=== PATIENT | female | born 1955 | race Caucasian/White ===

== ENCOUNTER 2016-06-18 22:20 | Emergency (ER) | payer BC ==
[~2016-06-18] VITALS: Ht 167.6 cm; Wt 240.0 kg
[~2016-06-18 22:20] MED LIST: ALEN70TA46 PO; ASPI-664 PO; ATOR20TA38 PO; GABA300C16 PO; IBUP800T25 PO; LISI10TA2 PO; LORA1TAB PO; METF-385 PO; NAPR500T8 PO; OSLT75C PO; PRED20TA PO; SITA100T8 PO
[2016-06-18 22:32] VITALS: Ht 167.6 cm; Wt 240.0 kg
[2016-06-18] MEDS ORDERED: ONDANSETRON (ODT) 4 MG TAB ODT STA (23:12)
--- NOTE | 2016-06-18 23:20 | ERD ---
ER Documentation Chief Complaint Date/Time DATE: 06/18/16 TIME: 23:16 Chief Complaint right hand laceration with broken plate x 1 hour ago HPI 60-year-old female with a history of bilateral knee arthritis, type 2 diabetes, hypertension presents to the emergency department following a fall and laceration. Patient states she was walking in her kitchen carrying a plate when she tripped and fell landing on the broken plate causing a laceration to her right hand. Patient states the injury occurred 1 hour ago and since that time she is experienced ongoing bleeding. She currently rates her pain as a 6 out of 10 constant throbbing isolated to the right hand. She denies any other obvious injury but does note that she has some pain throughout her right upper extremity. Patient notes however that she is able to fully move her right upper extremity at the shoulder and elbow joint. Patient denies any trauma to her head and did not lose consciousness. Patient denies any shortness of breath , chest pain, dizziness, headache, abdominal pain, fever, or recent illness. ROS All systems reviewed and are negative except as per history of present illness. Medications Home Meds Active Scripts Mupirocin* (Bactroban*) 2% -22 Gram Oint...g., 1 APPLIC TOP TID, #1 TUB SITE OF APPLICATION: Prov:ANDREW BUTLER PA-C 06/19/16 Cephalexin* (Keflex*) 500 Mg Capsule, 500 MG PO QID for 5 Days, CAP Prov:ANDREW BUTLER PA-C 06/19/16 Hydrocodone/Acetaminophen ([place] 10-325 Tablet) 1 Each Tablet, 1 TAB PO Q6H Y for PAIN, #20 TAB Prov:ANDREW BUTLER PA-C 06/19/16 Oseltamivir Phosphate* (Tamiflu*) 75 Mg Capsule, 75 MG PO BID for 5 Days, CAP Prov:CAM HUSAIN 03/11/16 Prednisone* (Prednisone*) 20 Mg Tab, 40 MG PO DAILY for 4 Days, TAB Prov:CAM HUSAIN 03/11/16 Ibuprofen* (Motrin*) 800 Mg Tab, 800 MG PO Q6, #30 TAB Prov:CAM HUSAIN 03/11/16 Reported Medications Lorazepam* (Lorazepam*) 1 Mg Tablet, 1 MG PO BID Y for ANXIETY, #30 TAB 03/10/16 Sitagliptin* (Januvia*) 100 Mg Tablet, 100 MG PO DAILY, #30 TAB 03/10/16 Naproxen* (Naproxen EC*) 500 Mg Tablet.dr, 500 MG PO BID Y for PAIN, TAB 03/10/16 Metformin Hcl* (Metformin Hcl*) 850 Mg Tablet, 850 MG PO WITH BREAKFAST, #30 TAB 03/10/16 Lisinopril* (Lisinopril*) 10 Mg Tablet, 10 MG PO DAILY, #30 TAB 03/10/16 Gabapentin* (Gabapentin*) 300 Mg Capsule, 300 MG PO TID, #90 CAP 03/10/16 Atorvastatin Calcium* (Atorvastatin Calcium*) 20 Mg Tablet, 20 MG PO QHS, #30 TAB 03/10/16 Aspirin* (Aspirin* EC) 81 Mg Tablet.dr, 81 MG PO DAILY, TAB 03/10/16 Alendronate Sodium* (Binosto*) 70 Mg Tablet.eff, 70 MG PO Q7D, TAB PT TAKES MEDICATION EVERY Wednesday03/10/16 Allergies Allergies: Coded Allergies: No Known Allergy (Unverified , 03/10/16) PMhx/Soc History of Surgery: No Anesthesia Reaction: No Hx Neurological Disorder: No Hx Respiratory Disorders: No Hx Cardiac Disorders: Yes (HTN) Hx Psychiatric Problems: No Hx Miscellaneous Medical Probl: Yes (DM, ARTHRITIS) Hx Alcohol Use: No Hx Substance Use: No Hx Tobacco Use: No Smoking Status: Never smoker Physical Exam Vitals Vital Signs Date Time Temp Pulse Resp B/P Pulse Ox O2 Delivery O2 Flow Rate FiO2 06/18/16 22:32 98.2 87 20 185/92 98 Physical Exam Const: Well-developed, well-nourished, well-hydrated, nontoxic appearing, in mild to Head: Atraumatic Eyes: Normal Conjunctiva ENT: Normal External Ears, Nose and Mouth. Neck: Full range of motion..~ No meningismus. Resp: Clear to auscultation bilaterally Cardio: Regular rate and rhythm, no murmurs Abd: Soft, non tender, non distended. Normal bowel sounds Skin: No petechiae or rashes Back: No midline or flank tenderness Ext: No tenderness to palpation along the shoulder or elbow joint of the right upper extremity. No tenderness to palpation along the humerus shaft or forearm. Full active and passive range of motion at left upper shoulder, elbow , wrist joints. No cyanosis, or edema Neur: Awake and alert Psych: Normal Mood and Affect Results 24 hrs Current Medications Medications (Trade) Dose Ordered Sig/Tory Route PRN Reason Start Time Stop Time Status Last Admin Dose Admin Acetaminophen/ Hydrocodone Bitart ([place] (10/325)) 1 tab ONCE ONCE PO 06/18/16 23:30 06/18/16 23:31 DC 06/18/16 23:18 Ondansetron HCl (Zofran Odt) 4 mg ONCE STAT ODT 06/18/16 23:12 06/18/16 23:15 DC 06/18/16 23:18 Diphtheria/ Tetanus/Acell Pertussis (Adacel) 0.5 ml ONCE ONCE IM* 06/19/16 00:30 06/19/16 00:31 Procedures/MDM PROCEDURE: XR Hand. CLINICAL INDICATION: Right hand pain. TECHNIQUE: AP oblique and lateral views of the right hand were obtained. COMPARISON: No prior studies are available for comparison. FINDINGS: Reference marker is directed towards the medial aspect of the right hand, without evident underlying radiographic abnormality. Demineralization limits evaluation of fine osseous detail. No acute fracture or dislocation is seen. There are no significant degenerative changes. There is no significant soft tissue swelling. No evident retained radiopaque foreign material in the right hand. IMPRESSION: Demineralization, without acute fracture. RPTAT: [facility] Physician Kj Date Time Electronically viewed and signed by Physician Kj on 06/18/2016 23:34 RS/ CC: ANDREW BUTLER-Melissa X-ray Hand 3V interpreted by me: Scaphoid: Normal Bones: No fracture Joints: No dislocation Foreign body: None Laceration Repair by me: Anesthesia: 1% lidocaine locally Location: [XOXOXO] Tendon/Joint/Nerves: No injury Foreign body: None detected after copious irrigation and exploration Technique: Simple Interrupted Sutures Complexity: No subcutaneous sutures/mucosal repair/ edge excision Post Closure Length: [XOXOXO] cm Patient's bleeding was easily controlled in the department and there is no indication of anemia. No evidence of compartment syndrome, neurologic injury, vascular injury, open joint, tendon laceration, or foreign body. Patient is appropriate for outpatient follow up. 48 hour wound check. Scar minimization instructions given. Patient given Jackhorn and Zofran while in the emergency department. Patient given Tdap booster while in the emergency department today 60-year-old female with a history of diabetes, hypertension, and arthritis who presents to the emergency department following a fall and laceration to her left upper extremity. Based on patient's history of present illness and physical examination the decision was made to discharge. The patient was re-evaluated after ED treatment and stabilizing measures, and symptoms have improved. There is no evidence of life threatening injuries or illnesses at this time. On re-examination, patient resting in no distress, stable vital signs, reports feeling better and safe for discharge with outpatient follow up with PMD in 1-2 days. Patient given return precautions. ANDREW BUTLER PA-C Jun 18, 2016 23:20
[2016-06-18] MEDS ORDERED: HYDROCODONE/APAP (10/325) TAB PO ONE (23:30)
--- NOTE | 2016-06-18 23:34 | RADRPT ---
PROCEDURE: XR Hand. CLINICAL INDICATION: Right hand pain. TECHNIQUE: AP oblique and lateral views of the right hand were obtained. COMPARISON: No prior studies are available for comparison. FINDINGS: Reference marker is directed towards the medial aspect of the right hand, without evident underlying radiographic abnormality. Demineralization limits evaluation of fine osseous detail. No acute fracture or dislocation is seen. There are no significant degenerative changes. There is no significant soft tissue swelling. No evident retained radiopaque foreign material in the right hand. IMPRESSION: Demineralization, without acute fracture. RPTAT: [facility] Physician Kj Date Time Electronically viewed and signed by Physician Kj on 06/18/2016 23:34 RS/
[2016-06-19] MEDS ORDERED: HYDR-902 PO (00:15)
[2016-06-19] MEDS ORDERED: MUPI22OI2 TOP (00:17)
[2016-06-19] MEDS ORDERED: CEPH-443 PO (00:17)
[2016-06-19] MEDS ORDERED: DIPHTH/TET/ACEL PERTUSS (ADULT) 0.5 ML VIAL IM* ONE (00:30)
[2016-06-19 01:01] VITALS: BP 139/69; PULSE 80; RESP 22; TEMP 98.1
== END 2016-06-19 01:10 | disposition home or self-care (01) ==
LOC: FTE 22:20
DX: S61.411A Laceration without foreign body of right hand, initial encounter (principal); I10 Essential (primary) hypertension; E11.9 Type 2 diabetes mellitus without complications; W26.8XXA Contact with other sharp object(s), not elsewhere classified, initial encounter; Y92.000 Kitchen of unspecified non-institutional (private) residence as the place of occurrence of the external cause; Z23 Encounter for immunization; Z79.84 Long term (current) use of oral hypoglycemic drugs; Z79.82 Long term (current) use of aspirin
CPT/HCPCS: 12001; 73130; 90471; 90715; Z7502; Z7610

== ENCOUNTER 2016-06-21 19:14 | Emergency (ER) | payer BC ==
[~2016-06-21] VITALS: Ht 167.6 cm; Wt 111.0 kg
[~2016-06-21 19:14] MED LIST changes: +CEPH-443 PO; +HYDR-902 PO; -METF-385 PO; +METF850T PO; +MUPI22OI2 TOP
[2016-06-21 19:20] VITALS: Ht 167.6 cm; Wt 111.0 kg
--- NOTE | 2016-06-21 21:16 | ERD ---
ER Documentation Chief Complaint Date/Time DATE: 06/21/16 TIME: 21:14 Chief Complaint has splint on right pinky finger, coming back for wound check HPI 60-year-old female presents here in emergency department for wound check of the right fifth finger laceration wound, it was sutured 2 days ago. Patient's pain is controlled at this time. Patient discussed pain as throbbing pain, 4/10 scale , worse upon touching the area. Patient denies any discharge coming from the area. Patient denies any gaping of the wound. Patient does not have fever or chills. Patient is currently taking antibiotics prescribed to her. ROS All systems reviewed and are negative except as per history of present illness. Medications Home Meds Active Scripts Mupirocin* (Bactroban*) 2% -22 Gram Oint...g., 1 APPLIC TOP TID, #1 TUB SITE OF APPLICATION: Prov:ANDREW BUTLER PA-C 06/19/16 Cephalexin* (Keflex*) 500 Mg Capsule, 500 MG PO QID for 5 Days, CAP Prov:ANDREW BUTLER PA-C 06/19/16 Hydrocodone/Acetaminophen ([place] 10-325 Tablet) 1 Each Tablet, 1 TAB PO Q6H Y for PAIN, #20 TAB Prov:ANDREW BUTLER PA-C 06/19/16 Oseltamivir Phosphate* (Tamiflu*) 75 Mg Capsule, 75 MG PO BID for 5 Days, CAP Prov:CAM HUSAIN 03/11/16 Prednisone* (Prednisone*) 20 Mg Tab, 40 MG PO DAILY for 4 Days, TAB Prov:CAM HUSAIN 03/11/16 Ibuprofen* (Motrin*) 800 Mg Tab, 800 MG PO Q6, #30 TAB Prov:CAM HUSAIN 03/11/16 Reported Medications Lorazepam* (Lorazepam*) 1 Mg Tablet, 1 MG PO BID Y for ANXIETY, #30 TAB 03/10/16 Sitagliptin* (Januvia*) 100 Mg Tablet, 100 MG PO DAILY, #30 TAB 03/10/16 Naproxen* (Naproxen EC*) 500 Mg Tablet.dr, 500 MG PO BID Y for PAIN, TAB 03/10/16 Metformin Hcl* (Metformin Hcl*) 850 Mg Tablet, 850 MG PO WITH BREAKFAST, #30 TAB 03/10/16 Lisinopril* (Lisinopril*) 10 Mg Tablet, 10 MG PO DAILY, #30 TAB 03/10/16 Gabapentin* (Gabapentin*) 300 Mg Capsule, 300 MG PO TID, #90 CAP 03/10/16 Atorvastatin Calcium* (Atorvastatin Calcium*) 20 Mg Tablet, 20 MG PO QHS, #30 TAB 03/10/16 Aspirin* (Aspirin* EC) 81 Mg Tablet.dr, 81 MG PO DAILY, TAB 03/10/16 Alendronate Sodium* (Binosto*) 70 Mg Tablet.eff, 70 MG PO Q7D, TAB PT TAKES MEDICATION EVERY Wednesday03/10/16 Allergies Allergies: Coded Allergies: No Known Allergy (Unverified , 03/10/16) PMhx/Soc Medical and Surgical Hx: pt denies Surgical Hx History of Surgery: No Anesthesia Reaction: No Hx Neurological Disorder: No Hx Respiratory Disorders: No Hx Cardiac Disorders: Yes (HTN) Hx Psychiatric Problems: No Hx Miscellaneous Medical Probl: Yes (DM,Arthritis) Hx Alcohol Use: No Hx Substance Use: No Hx Tobacco Use: No Smoking Status: Never smoker FmHx Family History: No coronary disease, No diabetes, No other Physical Exam Vitals Vital Signs Date Time Temp Pulse Resp B/P Pulse Ox O2 Delivery O2 Flow Rate FiO2 06/21/16 19:20 98.7 98 22 152/69 98 Physical Exam GENERAL: The patient is well developed and appropriate for usual state of health, in no apparent distress. CHEST: Clear to auscultation bilaterally. There are no rales, wheezes or rhonchi. HEART: Regular rate and rhythm. No murmurs, clicks, rubs or gallops. No S3 or S4. ABDOMEN: Soft, nontender and nondistended. Good bowel sounds. No rebound or guarding. No gross peritonitis. No gross organomegaly or masses. No Ty sign or McBurney point tenderness. BACK: No midline or flank tenderness. EXTREMITIES: Equal pulses bilaterally. There is no peripheral clubbing, cyanosis or edema. No focal swelling or erythema. Full range of motion. Grossly neurovascularly intact. NEURO: Alert and oriented. Cranial nerves 2-12 intact. Motor strength in all 4 extremities with 5/5 strength. Sensation grossly intact. Normal speech and gait. SKIN: Noted for suture is in place on the fifth finger of the right hand, on no gaping of the wound noted, sutures are in place, no symptoms of any infection. No redness or swelling. There is no apparent ecchymosis or petechia. The skin is warm and dry. HEMATOLOGIC AND LYMPHATIC: There is no evidence of excessive bruising or lymphedema. No gross cervical, axillary, or inguinal lymphadenopathy. Procedures/MDM Medical decision making: Patient's wound is well approximated, healing well, no symptoms of any infection. No symptoms of neurovascular compromise. Patient was advised to continue taking medications given to her. Patient was advised to have sutures removed in 7-10 days. Patient was advised to return sooner for any worsening symptoms. Departure Diagnosis: Primary Impression: Visit for wound check Additional Impression: Finger laceration Encounter type: subsequent encounter Qualified Code: S61.219D - Finger laceration, subsequent encounter Condition: Stable Patient Instructions: Wound Check, Lac F/U (No Infection) Additional Instructions: suture removal 7-10 days MIKE GRANADOS NP Jun 21, 2016 21:15
== END 2016-06-21 21:13 | disposition home or self-care (01) ==
LOC: FTE 19:14
DX: Z48.01 Encounter for change or removal of surgical wound dressing (principal); S61.216D Laceration without foreign body of right little finger without damage to nail, subsequent encounter; I10 Essential (primary) hypertension; E11.9 Type 2 diabetes mellitus without complications; X58.XXXD Exposure to other specified factors, subsequent encounter; Z79.84 Long term (current) use of oral hypoglycemic drugs; Z79.82 Long term (current) use of aspirin
CPT/HCPCS: 99281

== ENCOUNTER 2016-06-27 00:37 | Emergency (ER) | payer SELFPAY ==
[~2016-06-27] VITALS: Wt 111.0 kg
[2016-06-28] MEDS ORDERED: BACTDS PO (11:51)
[2016-06-28] MEDS ORDERED: MUPI22OI2 TOP (11:52)
== END 2016-06-27 02:08 | disposition left against medical advice (07) ==
LOC: FTE 00:37
DX: Z53.21 Procedure and treatment not carried out due to patient leaving prior to being seen by health care provider (principal)

== ENCOUNTER 2016-06-28 10:45 | Emergency (ER) | payer BC ==
[~2016-06-28] VITALS: Wt 80.0 kg
[2016-06-28] MEDS ORDERED: BACTDS PO (11:51)
[2016-06-28] MEDS ORDERED: MUPI22OI2 TOP (11:52)
--- NOTE | 2016-06-28 11:59 | ERD ---
ER Documentation Chief Complaint Date/Time DATE: 06/28/16 TIME: 11:56 Chief Complaint right hand suture removal. placed 10 days ago HPI 60-year-old female with history of type 2 diabetes comes in for suture removal from the right fifth digit from 10 days ago. Laceration occurred from a fall in the plate because laceration, x-rays were normal. She states that over the last 3 days there has been increased redness and pain. She took the antibiotics orally, and apply Neosporin on this. ROS All systems reviewed and are negative except as per history of present illness. Medications Home Meds Active Scripts Mupirocin* (Bactroban*) 2% -22 Gram Oint...g., 1 APPLIC TOP BID for 7 Days, EA Prov:YUNIER VELIZ PA-C 06/28/16 Sulfamethoxazole-Trimethoprim* (Bactrim* DS) 800-160 Mg Tab, 1 TAB PO BID for 7 Days, TAB Prov:YUNIER VELIZ PA-C 06/28/16 Mupirocin* (Bactroban*) 2% -22 Gram Oint...g., 1 APPLIC TOP TID, #1 TUB SITE OF APPLICATION: Prov:ANDREW BUTLER PA-C 06/19/16 Cephalexin* (Keflex*) 500 Mg Capsule, 500 MG PO QID for 5 Days, CAP Prov:ANDREW BUTLER PA-C 06/19/16 Hydrocodone/Acetaminophen ([place] 10-325 Tablet) 1 Each Tablet, 1 TAB PO Q6H Y for PAIN, #20 TAB Prov:ANDREW BUTLER PA-C 06/19/16 Oseltamivir Phosphate* (Tamiflu*) 75 Mg Capsule, 75 MG PO BID for 5 Days, CAP Prov:CAM HUSAIN 03/11/16 Prednisone* (Prednisone*) 20 Mg Tab, 40 MG PO DAILY for 4 Days, TAB Prov:CAM HUSAIN 03/11/16 Ibuprofen* (Motrin*) 800 Mg Tab, 800 MG PO Q6, #30 TAB Prov:CAM HUSAIN 03/11/16 Reported Medications Lorazepam* (Lorazepam*) 1 Mg Tablet, 1 MG PO BID Y for ANXIETY, #30 TAB 03/10/16 Sitagliptin* (Januvia*) 100 Mg Tablet, 100 MG PO DAILY, #30 TAB 03/10/16 Naproxen* (Naproxen EC*) 500 Mg Tablet.dr, 500 MG PO BID Y for PAIN, TAB 03/10/16 Metformin Hcl* (Metformin Hcl*) 850 Mg Tablet, 850 MG PO WITH BREAKFAST, #30 TAB 03/10/16 Lisinopril* (Lisinopril*) 10 Mg Tablet, 10 MG PO DAILY, #30 TAB 03/10/16 Gabapentin* (Gabapentin*) 300 Mg Capsule, 300 MG PO TID, #90 CAP 03/10/16 Atorvastatin Calcium* (Atorvastatin Calcium*) 20 Mg Tablet, 20 MG PO QHS, #30 TAB 03/10/16 Aspirin* (Aspirin* EC) 81 Mg Tablet.dr, 81 MG PO DAILY, TAB 03/10/16 Alendronate Sodium* (Binosto*) 70 Mg Tablet.eff, 70 MG PO Q7D, TAB PT TAKES MEDICATION EVERY Wednesday03/10/16 Allergies Allergies: Coded Allergies: No Known Allergy (Unverified , 03/10/16) PMhx/Soc History of Surgery: No Anesthesia Reaction: No Hx Neurological Disorder: No Hx Respiratory Disorders: No Hx Cardiac Disorders: Yes (HTN) Hx Psychiatric Problems: No Hx Miscellaneous Medical Probl: Yes (DM,Arthritis) Hx Alcohol Use: No Hx Substance Use: No Hx Tobacco Use: No Physical Exam Vitals Vital Signs Date Time Temp Pulse Resp B/P Pulse Ox O2 Delivery O2 Flow Rate FiO2 06/28/16 11:07 98.0 83 20 165/88 98 Physical Exam General: Well-developed, well-nourished. The patient appears in no acute distress. HEENT: Head is normocephalic, atraumatic. No scleral icterus. Neck: Supple. Nontender. Lungs: Clear to auscultation. Normal air movement. Heart: Regular rate and rhythm. S1 and S2 are normal. No murmurs, gallops, or rubs. Abdomen: Nondistended. Extremities: 5 simple interrupted sutures intact to the dorsal aspect of the proximal phalanx of the right fifth digit. There is erythema, swelling mild crusting and drainage. Small opening at the site of the laceration. Full range of motion with flexion and extension at DIP, PIP and MCP joint. Capillary refill less than 2 seconds. Neurologic: Alert and oriented 3. No focal deficits. Normal speech and gait. Skin: Normal turgor. No rash or lesions. Results 24 hrs Current Medications Medications (Trade) Dose Ordered Sig/Tory Route PRN Reason Start Time Stop Time Status Last Admin Dose Admin Ceftriaxone Sodium (Rocephin) 1 gm ONCE ONCE IM 06/28/16 12:00 06/28/16 12:01 Lidocaine (Xylocaine 1% (Mdv) 20 ml) 2 ml ONCE ONCE IM 06/28/16 12:00 06/28/16 12:01 Procedures/MDM ED course: Sutures 5 were removed from the right fifth digit. Wound care was done, clean dressing was applied with bacitracin. She was given Rocephin 1 g IM. MDM: 60-year-old female who is diabetic comes in for suture removal, there appears to be an infection at the site. It does appear to be superficial without evidence of tenosynovitis or neurovascular compromise. She was given Rocephin due to her history of diabetes, will be given Bactrim DS as well as Bactroban, wound check advised in 2 days. This does not appear to feel a limb threatening process, she was advised to return sooner for any worsening or new symptoms Departure Diagnosis: Primary Impression: Encounter for removal of sutures Additional Impression: Cellulitis of finger of right hand Condition: Good Patient Instructions: Suture Removal, No Complication, Wound Check, Lac F/U ( Infected) Additional Instructions: Follow up in 2 days in your clinic for wound check. YUNIER VELIZ PA-C Jun 28, 2016 11:59
[2016-06-28] MEDS ORDERED: LIDOCAINE 1% (MDV) 20 ML INJ IM ONE (12:00)
[2016-06-28] MEDS ORDERED: CEFTRIAXONE 1 GM INJ IM ONE (12:00)
== END 2016-06-28 12:29 | disposition home or self-care (01) ==
LOC: FTE 10:45
DX: Z48.02 Encounter for removal of sutures (principal); L03.011 Cellulitis of right finger; E11.9 Type 2 diabetes mellitus without complications; I10 Essential (primary) hypertension; Z79.82 Long term (current) use of aspirin; Z79.84 Long term (current) use of oral hypoglycemic drugs
CPT/HCPCS: J0696; Z7610; 96372

== ENCOUNTER 2016-06-30 21:42 | Emergency (ER) | payer SELFPAY ==
[~2016-06-30 21:42] MED LIST changes: +BACTDS PO
== END 2016-06-30 22:38 | disposition left against medical advice (07) ==
LOC: E/R 21:42
DX: Z53.21 Procedure and treatment not carried out due to patient leaving prior to being seen by health care provider (principal)